=== PATIENT | male | born 1960 | race African-American/Black ===

== ENCOUNTER 2018-11-03 05:10 | Emergency (ER) | payer SELFPAY ==
[2018-11-03 05:33] LABS: INR-International Normal Ratio 1.1; PTT 38.5 SEC (22.9-36.1)
[2018-11-03 05:36] LABS: Band 15 % (5-11); Eosinophils 3 % (0-10); Hemoglobin 13.9 g/dL (14.0-18.0); Lymphocytes 30 % (21-51); MDiff Complete? YES; Mean Corpuscular HGB CONC 31.6 g/dL (32.0-36.0); Mean Corpuscular Hemoglobin 28.4 pg (27.0-31.0); Mean Corpuscular Volume 89.8 fL (78.0-98.0); Mean Platelet Volume 7.9 fL (7.4-10.4); Metamyelocyte 1 % (0-0); Monocytes 10 % (0-10); Neutrophil 41 % (42-75); Platelet Count 310 thou/uL (130-400); Platelet Morphology Comment Appears Adequate; RBC Distribution Width 13.1 % (11.5-14.5); RBC Morphology Normal; Red Blood Cell (RBC) Count 4.89 mill/uL (4.70-6.10); White Blood Cell (WBC) Count 8.9 thou/uL (4.8-10.8)
[2018-11-03 05:41] LABS: ALT (SGPT) 6 U/L (8-55); AST (SGOT) 13 U/L (5-34); Albumin 4.1 g/dL (3.5-5.0); Alkaline Phosphatase 76 U/L (40-150); Anion Gap 16 mmol/L (10-20); BUN (Urea Nitrogen) 11 mg/dL (8.4-25.7); Bilirubin, Total 0.7 mg/dL (0.2-1.2); Calc. Creatinine Clearance 0 mL/min (70-130); Carbon Dioxide 22 mmol/L (22-29); Chloride 100 mmol/L (98-107); Estimated GFR-MDRD 80; Globulin 3.7 g/dL (2.4-3.5); Glucose 91 mg/dL (70-105); Potassium 4.7 mmol/L (3.5-5.1); Protein, Total 7.8 g/dL (6.0-8.3); Sodium 133 mmol/L (136-145)
[2018-11-03] MEDS ORDERED: Lisinopril 20 MG TAB ONE (06:01)
[2018-11-03] MEDS ORDERED: Acetaminophen 500 MG TAB ONE (06:01)
--- NOTE | 2018-11-03 07:38 | CT ---
PRELIMINARY REPORT/[facility]/EMERGENTY AFTER-HOURS PROCEDURE CT Head Without Contrast EXAM DATE/TIME: 11/03/2018 5:29 AM CLINICAL HISTORY: 58 years old, male; Signs and symptoms; Altered mental status/memory loss and dizziness; Confusion or disorientation; Patient HX: Dizzy and hypertensive since midnight TECHNIQUE: Axial computed tomography images of the head/brain without contrast. All CT scans at this facility use at least one of these dose optimization techniques: automated expos ure control; mA and/or kV adjustment per patient size (includes targeted exams where dose is matched to clinical indication); or iterative reconstruction. COMPARISON: No relevant prior studies available. FINDINGS: Brain: Normal. No hemorrhage. No significant white matter disease. No edema. Ventricles: Normal. No ventriculomegaly. 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 Sinuses: Visualized sinuses are unremarkable. No acute sinusitis. Mastoid air cells: Visualized mastoid air cells are unremarkable. No mastoid effusion. Soft tissues: Unremarkable. IMPRESSION: No acute intracranial hemorrhage. Thank you for allowing us to participate in the care of your patient. Dictated and Authenticated by: Jozef Ca MD 11/03/2018 5:46 AM Central Time ([place] & [place]) CT BRAIN WITHOUT CONTRAST: Date: 11/03/18 INDICATION: Hypertension, headache, and lightheadedness. COMPARISON: Prior exam dated 07/18/18. FINDINGS: No acute infarct, hemorrhage, or hydrocephalus is evident. Tiny hypodensities within the basal gangli a bilaterally are similar appearing, likely reflecting old lacunar infarcts. Septum pellucidum and th ird ventricle are midline. Skull and extracranial soft tissues are unremarkable appearing. 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 IMPRESSION: No acute intracranial abnormality. POS: [facility]
== END 2018-11-03 06:16 | disposition home or self-care (01) ==
LOC: NAV ERS 05:10
DX: I10 Essential (primary) hypertension (principal); R51 Headache; F17.210 Nicotine dependence, cigarettes, uncomplicated; Z79.899 Other long term (current) drug therapy
CPT/HCPCS: 36416; 70450; 80053; 84484; 85025; 85610; 85730; 93005; 94760

== ENCOUNTER 2018-11-05 08:49 | Emergency (ER) | payer SELFPAY ==
[2018-11-05] MEDS ORDERED: Amlodipine 10 MG TAB ONE (10:13)
== END 2018-11-05 12:12 | disposition home or self-care (01) ==
LOC: NAV ERS 08:49
DX: T46.4X5A Adverse effect of angiotensin-converting-enzyme inhibitors, initial encounter (principal); I10 Essential (primary) hypertension; Z87.891 Personal history of nicotine dependence
CPT/HCPCS: 99283

== ENCOUNTER 2019-09-07 15:48 | Emergency (ER) | payer SELFPAY ==
[2019-09-07] MEDS ORDERED: Sodium Chloride 0.9% 1,000 ML ONE (16:55)
[2019-09-07] MEDS ORDERED: Meclizine HCl 25 MG TAB ONE (16:55)
[2019-09-07 17:44] LABS: Bilirubin Negative (Negative); Blood, Urine Negative (Negative); Clarity Clear (Clear); Glucose, Urine (Dipstick) Negative (Negative); Leukocyte Small (Negative); Nitrite Negative (Negative); Protein, Urine (Dipstick) Negative (Neg-Trace)
[2019-09-07 17:49] LABS: #Basophils 0.1 thou/uL (0.0-0.2); #Eosinphils 0.3 thou/uL (0.0-0.7); #Lymphocytes 2.4 thou/uL (1.20-3.40); #Monocytes 0.5 thou/uL (0.11-0.59); #Neutrophils 3.9 thou/uL (1.40-6.50); %Basophils 1.4 % (0.0-1.0); %Eosinophils 4.2 % (0.0-10.0); %Lymphocytes 33.3 % (21.0-51.0); %Monocytes 7.5 % (0.0-10.0); %Neutrophils 53.6 % (42.0-75.0); Hemoglobin 12.4 g/dL (14.0-18.0); Mean Corpuscular HGB CONC 31.6 g/dL (32.0-36.0); Mean Corpuscular Hemoglobin 28.3 pg (27.0-31.0); Mean Corpuscular Volume 89.7 fL (78.0-98.0); Platelet Count 289 thou/uL (130-400); RBC Distribution Width 12.3 % (11.5-14.5); Red Blood Cell (RBC) Count 4.38 mill/uL (4.70-6.10); White Blood Cell (WBC) Count 7.2 thou/uL (4.8-10.8)
[2019-09-07 17:52] LABS: Bacteria/HPF Rare-Few HPF (None Seen); RBC/HPF 0-3 HPF (0-3); Squamous Epithelial 0-3 HPF (0-3); WBC/HPF 0-3 HPF (0-3)
[2019-09-07 17:58] LABS: ALT (SGPT) 27 U/L (8-55); AST (SGOT) 26 U/L (5-34); Albumin 4.3 g/dL (3.5-5.0); Alkaline Phosphatase 98 U/L (40-110); Anion Gap 19 mmol/L (10-20); BUN (Urea Nitrogen) 9 mg/dL (8.4-25.7); Bilirubin, Total 0.6 mg/dL (0.2-1.2); Calc. Creatinine Clearance 0 mL/min (70-130); Calcium 9.2 mg/dL (7.8-10.44); Carbon Dioxide 20 mmol/L (22-29); Chloride 98 mmol/L (98-107); Estimated GFR-MDRD 87; Globulin 3.4 g/dL (2.4-3.5); Glucose 81 mg/dL (70-105); Potassium 4.2 mmol/L (3.5-5.1); Protein, Total 7.7 g/dL (6.0-8.3); Sodium 133 mmol/L (136-145)
== END 2019-09-07 18:32 | disposition home or self-care (01) ==
LOC: NAV ERS 15:48
DX: E86.9 Volume depletion, unspecified (principal); R42 Dizziness and giddiness; I10 Essential (primary) hypertension; F17.210 Nicotine dependence, cigarettes, uncomplicated
CPT/HCPCS: 80053; 81003; 81015; 84484; 85025; 93005; 96360; J7050; J8597

== ENCOUNTER 2020-02-26 15:15 | Emergency (ER) | payer SELFPAY | END 2020-02-26 16:09 | disposition home or self-care (01) | LOC: NAV ERS 15:15 | DX: M25.511 Pain in right shoulder (principal); I10 Essential (primary) hypertension; Z79.899 Other long term (current) drug therapy | CPT/HCPCS: 99283 ==

== ENCOUNTER 2020-03-19 18:39 | Emergency (ER) | payer SELFPAY ==
--- NOTE | 2020-03-19 19:30 | RAD ---
TWO VIEWS OF THE RIGHT HIP 03/19/20 INDICATION: Right hip pain after fall. COMPARISON: None. FINDINGS: There are prominent vascular calcifications seen within the soft tissues adjacent to the right hip. T here is mild degenerative changes of the right hip. There is mild degenerative changes of the right h ip. No acute fracture is evident. IMPRESSION: No acute osseous abnormality. POS: [facility]
[2020-03-19] MEDS ORDERED: Ketorolac Tromethamine 60 MG/2 ML VIAL ONE (19:36)
== END 2020-03-19 20:01 | disposition home or self-care (01) ==
LOC: NAV ERS 18:39
DX: S73.101A Unspecified sprain of right hip, initial encounter (principal); I10 Essential (primary) hypertension; F17.210 Nicotine dependence, cigarettes, uncomplicated; Z79.899 Other long term (current) drug therapy; W19.XXXA Unspecified fall, initial encounter
CPT/HCPCS: 96372; J1885

== ENCOUNTER 2022-01-08 13:16 | Emergency (ER) | payer SELFPAY | END 2022-01-08 14:35 | disposition home or self-care (01) | LOC: NAV ERS 13:16 | DX: I10 Essential (primary) hypertension (principal); Z79.899 Other long term (current) drug therapy; F17.210 Nicotine dependence, cigarettes, uncomplicated ==

== ENCOUNTER 2022-12-09 10:38 | Outpatient (CLI) | payer MEDICAID | END 2022-12-09 10:39 | disposition home or self-care (01) | LOC: NAV RAD 10:38 | PROVIDERS: ATTEND Nurse Practitioner Family | DX: M25.551 Pain in right hip (principal) ==